=== PATIENT | male | born 1985 | race Two or more races ===

== ENCOUNTER 2020-11-14 16:27 | Emergency (ER) | payer MEDICAID ==
[~2020-11-14] VITALS: Ht 160 cm; Wt 74.8 kg
[2020-11-14 17:12] VITALS: BP 149/88
[2020-11-14] MEDS ORDERED: CYCLOBENZAPRINE 10 MG TABLET PO ONE (18:00)
[2020-11-14] MEDS ORDERED: IBUP-1955 PO (18:07)
[2020-11-14] MEDS ORDERED: CYCL10TA9 PO (18:07)
[2020-11-14] MEDS ORDERED: CYCLOBENZAPRINE 10 MG TABLET ONE (18:50)
== END 2020-11-14 18:55 | disposition home or self-care (01) ==
LOC: ER 16:31
DX: S29.012A Strain of muscle and tendon of back wall of thorax, initial encounter (principal); M62.830 Muscle spasm of back; J45.909 Unspecified asthma, uncomplicated; Z88.2 Allergy status to sulfonamides; Z60.2 Problems related to living alone; X50.0XXA Overexertion from strenuous movement or load, initial encounter; Y93.89 Activity, other specified; Y92.89 Other specified places as the place of occurrence of the external cause; Y99.8 Other external cause status
CPT/HCPCS: 72074-TC